=== PATIENT | male | born 1995 | race African-American/Black ===

== ENCOUNTER 2018-03-04 20:40 | Emergency (ER) | payer OTHER ==
[~2018-03-04] VITALS: Ht 185.4 cm; Wt 170.6 kg
[2018-03-04 20:44] VITALS: Ht 185.4 cm; Wt 170.6 kg
[2018-03-04 22:20] VITALS: BP 152/98
== END 2018-03-04 22:20 | disposition home or self-care (01) ==
LOC: ED 20:40
DX: S01.81XA Laceration without foreign body of other part of head, initial encounter (principal); I10 Essential (primary) hypertension; Z98.890 Other specified postprocedural states; Y04.0XXA Assault by unarmed brawl or fight, initial encounter; Y93.89 Activity, other specified; Y92.89 Other specified places as the place of occurrence of the external cause; Y99.8 Other external cause status